=== PATIENT | male | born 1945 | race Caucasian/White ===

== ENCOUNTER → 2022-03-04 14:01 | Outpatient (CLI) | payer MEDICARE, OTHER, SELFPAY ==
--- NOTE | 2022-03-04 | DI.MRI.S_ITS ---
PROCEDURE: MR LUMBAR SPINE WO CON INDICATIONS: BACK PAIN WITH RADICULOPATHY TECHNIQUE: Noncontrast sagittal T1 spin echo and T2 fast echo, sagittal STIR, and T2 fast spin echo through the lumbar spine. In cases with scoliosis, additional coronal T2 fast spin echo may be performed. COMPARISON: None. FINDINGS: Image quality: Excellent. Alignment and Curvature: There is normal bony alignment. Bone Marrow: Modic type 1 degenerative endplate changes present at L1-2, L3-4 and particular L5-S1. Spinal Cord: Conus medullaris terminates at the L1 level. Visualized cord demonstrates normal signal and size. There is generalized epidural lipomatosis present. Paraspinous Soft Tissues: Incidental iliac chain bilateral pelvic adenopathy measures up to 2.5 cm, partially imaged At T11-12, there is a posterior disc bulge with central stenosis incompletely evaluated without axial imaging. T12-L1: Disc height is preserved. No central or foraminal stenosis. Edematous nerve roots noted within the thecal sac L1-L2: Disc space narrowing with circumferential disc bulge present. There is a superimposed right subarticular disc extrusion with probable sequestration and inferior migration to the mid level of L2 resulting in moderate central stenosis. Moderate bilateral foraminal stenosis L2-L3: Disc space narrowing with circumferential disc bulge, ligamentum flavum laxity and epidural fat results in severe central stenosis. Moderate bilateral foraminal stenosis L3-L4: Disc space narrowing and circumferential disc bulge with hypertrophic facet joints and dorsal epidural fat results in severe central stenosis. Moderate bilateral foraminal stenosis L4-L5: Disc space narrowing with circumferential disc bulge and hypertrophic facet joints results in moderate central stenosis. Moderate right and severe left foraminal stenosis present. L5-S1: Disc space narrowing with circumferential disc bulge and hypertrophic facet joints results in mild central stenosis. Severe left and moderate right foraminal stenosis IMPRESSION: 1. Multilevel degenerative disc disease and arthropathy combines with epidural lipomatosis to result in severe central stenosis at L2-3, L3-4. 2. Right subarticular disc extrusion with inferior migration and probable sequestration at L1-2 results in moderate central stenosis. 3. Pelvic iliac chain adenopathy is partially imaged. Recommend CT abdomen and pelvis with contrast Approved by: Jairo Haddad M.D. on 03/04/2022 at 15:37
== END ==
PROVIDERS: PCP Internal Medicine; Referring Provider Internal Medicine; Visit Provider Internal Medicine
DX: M51.16 Intervertebral disc disorders with radiculopathy, lumbar region (principal); M51.17 Intervertebral disc disorders with radiculopathy, lumbosacral region; M47.26 Other spondylosis with radiculopathy, lumbar region; M47.27 Other spondylosis with radiculopathy, lumbosacral region; M48.061 Spinal stenosis, lumbar region without neurogenic claudication; M48.07 Spinal stenosis, lumbosacral region
CPT/HCPCS: 72148

== ENCOUNTER → 2022-05-03 09:00 | Outpatient (CLI) | payer MEDICARE, OTHER, SELFPAY ==
--- NOTE | 2022-05-03 09:04 | DI.CT.S_ITS ---
PROCEDURE: CT CHEST ABD PEL W CON INDICATIONS: ADENOPATHY/ELEVATED PSA TECHNIQUE: After the administration of oral and intravenous contrast, axial sections acquired from the supraclavicular neck to the pubic symphysis. Coronal and sagittal reformats were performed. For radiation dose reduction, the following was used: automated exposure control, adjustment of mA and/or kV according to patient size. COMPARISON: None. FINDINGS: Image quality: Excellent. CHEST: Lower Neck: No enlarged lymph nodes. Thyroid: Unremarkable. Axillae: No enlarged lymph nodes. Chest Wall: Unremarkable. Lungs and Airways: No consolidation or suspicious nodules. Pleura: No pneumothorax or pleural effusions. Heart: Heart size is normal. No pericardial effusion. Thoracic Vessels: The aorta and pulmonary arteries demonstrate normal size. Mediastinum and Kathi: There is a 2.0 cm in diameter intermediate density fluid collection anterior to the trachea (series 2/image 22). Esophagus: No wall thickening. No hiatal hernia. ABDOMEN: Liver: Unremarkable. Gallbladder: Unremarkable. Biliary ducts: Unremarkable. Pancreas: Unremarkable. Spleen: Unremarkable. Adrenal Glands: Unremarkable. Kidneys and Ureters: Unremarkable. Stomach and Bowel: Stomach, small bowel loops, and colon are unremarkable. The appendix is thin walled and gas filled. Peritoneum: No abnormal intraperitoneal fluid. No free air. Ventral Wall: No hernia. Abdominal Nodes: There are multiple enlarged bilateral internal and external iliac chain lymph nodes. On the left the largest measures 2.2 cm in diameter and on the right the largest measures 1.5 cm in diameter. No periaortic adenopathy or mesenteric adenopathy. Vessels: Aorta and inferior vena cava are normal in size. There are scattered atheromatous calcifications throughout the aorta and iliac arteries bilaterally. PELVIS: Pelvic Organs: Unremarkable. Bladder: Unremarkable. Pelvic Nodes: No inguinal adenopathy. Miscellaneous: There is a small fat containing right inguinal hernia. Bones: Unremarkable. Moderate to severe degenerative changes are present throughout the lumbar spine. IMPRESSION: 1. Bilateral enlarged iliac chain node suspicious for rayne adenopathy. 2. Intermediate density pretracheal fluid collection. Differential considerations include a necrotic lymph node; however there is no other mediastinal adenopathy. This may represent a congenital cystic lesion. If prior studies become available, a comparison can be made and an addendum can be issued. 3. No other metastatic disease. Dictated by: Ashley Hughes M.D. on 05/03/2022 at 13:31 Approved by: Ashley Hughes M.D. on 05/03/2022 at 14:08
[2022-05-03 10:43] LABS: BUN Creatinine Ratio 20.3 (6-22); Blood Urea Nitrogen 14 mg/dL (9-20); Calcium 9.1 mg/dL (8.4-10.2); Carbon Dioxide 32 mmol/L (22-32); Chloride 97 mmol/L (98-107); Estimated Glomerular Filt Rate > 60 mL/min (>60); Glucose 124 mg/dL (80-110); HEMOLYSIS 19 (0-50); Potassium 4.3 mmol/L (3.4-5.1); Sodium 136 mmol/L (137-145)
== END ==
PROVIDERS: PCP Internal Medicine; Referring Provider Internal Medicine; Visit Provider Internal Medicine
DX: R59.0 Localized enlarged lymph nodes (principal); R97.20 Elevated prostate specific antigen [PSA]; M47.816 Spondylosis without myelopathy or radiculopathy, lumbar region
CPT/HCPCS: 36415; 71260; 74177; 80048

== ENCOUNTER → 2023-07-13 09:24 | Outpatient (CLI) | payer MEDICARE, OTHER, SELFPAY ==
--- NOTE | 2023-07-13 09:25 | DI.NM.S_ITS ---
PROCEDURE: NM BONE SCAN WHOLE BODY RADIOPHARMACEUTICAL: 22 mCi Tc-99m MDP IV. INDICATIONS: Prostate Cancer TECHNIQUE: Delayed whole-body scintigrams were obtained approximately 3-4 hours after intravenous injection of radiotracer. Anterior and posterior views were acquired from vertex to feet. Additional left and right oblique views of the pelvis were obtained. COMPARISON: [facility], MR, MR ABDOMEN PELVIS WITH/WITHOUT CONTRAST, 02/10/2023, 14:07. CT, CT CHEST ABD PEL W CON, 05/03/2022, 11:53. FINDINGS: There are innumerable abnormal MDP uptake involving the skull, sternum, scapulae bilaterally, clavicles bilaterally, cervical, thoracic and lumbar spine, sacrum, multiple ribs bilaterally, bony pelvis humeri bilaterally and femurs bilaterally, consistent with metastasis. IMPRESSION: Extensive osseous metastatic disease. Dictated by: Margareth Toscano M.D. on 07/13/2023 at 13:44 Approved by: Margareth Toscano M.D. on 07/13/2023 at 13:47
== END ==
PROVIDERS: PCP Internal Medicine; Referring Provider Internal Medicine Hematology & Oncology; Visit Provider Internal Medicine Hematology & Oncology
DX: C61 Malignant neoplasm of prostate (principal); C79.51 Secondary malignant neoplasm of bone
CPT/HCPCS: 78306; A9503

== ENCOUNTER → 2025-07-01 09:12 | Outpatient (CLI) | payer MEDICARE, OTHER, SELFPAY ==
--- NOTE | 2025-07-01 09:13 | DI.NM.S_ITS ---
PROCEDURE: NC BONE SCAN WHOLE BODY RADIOPHARMACEUTICAL: 21.4 mCi Tc-99m MDP IV. 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 Anterior and posterior views were acquired from vertex to feet. . COMPARISON: [facility], NM, NC BONE SCAN WHOLE BODY, 07/13/2023, 9:52. FINDINGS: Multifocal osseous uptake is significantly decreased compared to prior exam. Again seen multifocal uptake throughout almost all osseous structures. IMPRESSION: Multifocal osseous uptake is present consistent with metastatic disease. The degree of uptake is overall significantly decreased compared to prior exam. Dictated by: Jose Daniel Victor M.D. on 07/08/2025 at 15:33 Approved by: Jose Daniel Victor M.D. on 07/08/2025 at 15:36
== END ==
LOC: NUCM 09:13
PROVIDERS: Referring Provider Internal Medicine Medical Oncology; Visit Provider Internal Medicine Medical Oncology
DX: C61 Malignant neoplasm of prostate (principal); C77.5 Secondary and unspecified malignant neoplasm of intrapelvic lymph nodes
CPT/HCPCS: 78306; A9503